=== PATIENT | male | born 1975 | race Caucasian/White ===

== ENCOUNTER → 2019-08-12 | Outpatient (CLI) | payer MEDICAID ==
--- NOTE | 2019-08-12 11:59 | Diagnostic Imaging Report ---
INDICATION: Right ankle pain. TIME OF EXAM: 11:48 a.m. FINDINGS: Two views of the right ankle were obtained. Alignment is normal. Ankle mortise is well-maintained. Talar dome is smooth. No fracture is seen. There is a corticated osseous density projected just cephalad to the anterior talus, chronic. No soft tissue swelling is seen. IMPRESSION: No acute bony abnormality is detected. Dictated by: Dictated on workstation # [id number]
== END ==
LOC: RAD FS 11:39
PROVIDERS: ATTEND Family Medicine
DX: M25.571 Pain in right ankle and joints of right foot (principal)
CPT/HCPCS: 73600

== ENCOUNTER 2019-09-11 05:52 | Outpatient (CLI) | payer MEDICAID ==
[~2019-09-11] VITALS: Ht 177 cm; Wt 100.0 kg
== END 2019-09-11 15:32 | disposition home or self-care (01) ==
LOC: PREOP 05:52
PROVIDERS: ATTEND Surgery
DX: Z01.818 Encounter for other preprocedural examination (principal)

== ENCOUNTER 2019-09-26 16:25 | Emergency (ER) | payer MEDICAID ==
[~2019-09-26] VITALS: Ht 175.2 cm; Wt 104.5 kg
[~2019-09-26 16:25] MED LIST: OXYC1TAB16 PO
--- NOTE | 2019-09-26 16:45 | NUR ---
Pt very rude and demanding to see a dr right this minute in regards to his rectal bleeding. Pt states, "i guess i will just lay here and !" This RN notified the pt he is BARRY x4, vitals stable and that he is not in any danger. Dr notified and in to see pt.
--- NOTE | 2019-09-26 17:02 | ED GI ---
General Chief Complaint: Rect Problems Stated Complaint: BLEEDING AFTER SURGERY Nursing Triage Note: Pt reports having bloody stool with clots this afternoon. He reports hemorrhoidectomy on 09/18/19. Pt denies abd pain or N/V/D. Sepsis Screen: No Definite Risk Source of Information: Patient Exam Limitations: No Limitations History of Present Illness Date Seen by Provider: Sep 26, 2019 Time Seen by Provider: 16:55 Initial Comments Presents via EMS w c/o rectal bleeding. Had hemorrhoidectomy 6 days ago in [place] by Dr Crawley. Has been having some intermittent bleeding, but after a BM today passed several large clots and called 911. Denies CP or SOA, denies syncope or feeling light headed or dizzy. Allergies and Home Medications Allergies Coded Allergies: No Known Drug Allergies (Unverified , 09/11/19) Home Medications Oxycodone HCl/Acetaminophen 1 Each Tablet, 1-2 TAB PO Q4H PRN for PAIN-MODERATE Prescribed by: FRAN BROOKS on 09/18/19 0823 Patient Home Medication List Home Medication List Reviewed: Yes Review of Systems Review of Systems Constitutional: see HPI; No dizziness, No malaise, No weakness Respiratory: See HPI; Denies Shortness of Air Cardiovascular: Denies Chest Pain, Denies Lightheadedness, Denies Palpitations, Denies Syncope Gastrointestinal: See HPI; Denies Abdominal Pain, Denies Constipated, Denies Diarrhea, Denies Nausea, Denies Poor Appetite, Denies Poor Fluid Intake; Rectal Bleeding; Denies Vomiting Genitourinary: No Symptoms Reported Musculoskeletal: no symptoms reported Hematologic/Lymphatic: See HPI, Blood Clots; Denies Easy Bleeding, Denies Easy Bruising Past Plsgneo-Inbdll-Kwdotq Hx Past Med/Social Hx: Reviewed Nursing Past Med/Soc Hx Patient Social History Type Used: Cigarettes 2nd Hand Smoke Exposure: Yes Recent Foreign Travel: No Contact w/Someone Who Travel: No Recent Infectious Disease Expo: No Recent Hopitalizations: No Immunizations Up To Date PED Vaccines UTD: No Date of Influenza Vaccine: Apr 28, 2019 Seasonal Allergies Seasonal Allergies: No Past Medical History Surgeries: Yes (WISDOM TEETH, HIATAL HERNIA REPAIR) Respiratory: No Currently Using CPAP: No Currently Using BIPAP: No Cardiac: No Neurological: Yes Headaches /Migraines Sexually Transmitted Disease: No HIV/AIDS: No Genitourinary: No Gastrointestinal: Yes Hemorrhoids Musculoskeletal: Yes Scoliosis, Chronic Back Pain Endocrine: No HEENT: Yes (READING GLASSES) Loss of Vision: Denies Hearing Impairment: Denies Cancer: No Psychosocial: Yes Depression Integumentary: No Blood Disorders: No Adverse Reaction/Blood Tranf: No Physical Exam Vital Signs Vital Signs - First Documented 09/26/19 16:30 Temp 36.4 Pulse 80 Resp 14 B/P (MAP) 127/71 (89) Pulse Ox 97 O2 Delivery Room Air Capillary Refill : Less Than 3 Seconds Height/Weight/BMI Height: '" Weight: lbs. oz. kg; 34.00 BMI Method: General Appearance: WD/WN, no apparent distress Rectal: hemorrhoids, tenderness, other (no active bleeding. healing skin post surgical. small tear @ 9 o'clock, otherwise no profuse bleeding. ) Progress/Results/Core Measures Results/Orders Lab Results Laboratory Tests Test 09/26/19 17:00 Range/Units White Blood Count 8.7 4.3-11.0 10^3/uL Red Blood Count 5.02 4.35-5.85 10^6/uL Hemoglobin 14.8 13.3-17.7 G/DL Hematocrit 44 40-54 % Mean Corpuscular Volume 88 80-99 FL Mean Corpuscular Hemoglobin 29 25-34 PG Mean Corpuscular Hemoglobin Concent 33 32-36 G/DL Red Cell Distribution Width 12.5 10.0-14.5 % Platelet Count 233 130-400 10^3/uL Mean Platelet Volume 11.3 H 7.4-10.4 FL Neutrophils (%) (Auto) 69 42-75 % Lymphocytes (%) (Auto) 21 12-44 % Monocytes (%) (Auto) 7 0-12 % Eosinophils (%) (Auto) 2 0-10 % Basophils (%) (Auto) 1 0-10 % Neutrophils # (Auto) 6.0 1.8-7.8 X 10^3 Lymphocytes # (Auto) 1.9 1.0-4.0 X 10^3 Monocytes # (Auto) 0.6 0.0-1.0 X 10^3 Eosinophils # (Auto) 0.2 0.0-0.3 10^3/uL Basophils # (Auto) 0.1 0.0-0.1 10^3/uL My Orders Orders - SONDRA LUI DO Cbc With Automated Diff (09/26/19 16:37) Vital Signs/I&O 09/26/19 16:30 Temp 36.4 Pulse 80 Resp 14 B/P (MAP) 127/71 (89) Pulse Ox 97 O2 Delivery Room Air Blood Pressure Mean: 89 Progress Progress Note : Progress Note Pt very difficult an belligerent w myself and nurse. After completion of his ER evaluation/ work-up and discussion of plan to send him home he asked to be life- flighted to [place] for further care. I explained that he was being discharged and he was stable. There was no evidence of imminent danger....ie bleeding to . Patient very worried that we were not doing enough. Explained his blood work was great, his Vitals were normal and his exam was without significant amount of bleeding. Tried to call his surgeon (Dr Smith) to notify him regarding this patient but he did not return my call @ [phone]. No need for admission or surgical consultation of this patient. Given instruction on warning signs of worsening bleeding or hemodynamic instability in his DC instructions. Departure Impression Primary Impression: Status post hemorrhoidectomy Additional Impression: Rectal/anal hemorrhage Disposition: HOME, SELF-CARE Condition: Improved Departure-Patient Inst. Referrals: EDIN GREWAL MD (PCP/Family) Primary Care Physician Patient Instructions: Hemorrhoidectomy (DC) SONDRA LUI DO Sep 26, 2019 17:02
[2019-09-26 17:10] LABS: BASOPHILS # (AUTO) 0.1 10^3/uL (0.0-0.1); BASOPHILS % (AUTO) 1 % (0-10); EOSINOPHILS # (AUTO) 0.2 10^3/uL (0.0-0.3); EOSINOPHILS % (AUTO) 2 % (0-10); HEMATOCRIT 44 % (40-54); HEMOGLOBIN 14.8 G/DL (13.3-17.7); LYMPHOCYTES # (AUTO) 1.9 X 10^3 (1.0-4.0); LYMPHOCYTES % (AUTO) 21 % (12-44); MEAN CORPUSCULAR HEMOGLOBIN 29 PG (25-34); MEAN CORPUSCULAR HGB CONC 33 G/DL (32-36); MEAN CORPUSCULAR VOLUME 88 FL (80-99); MEAN PLATELET VOLUME 11.3 FL (7.4-10.4); MONOCYTES # (AUTO) 0.6 X 10^3 (0.0-1.0); MONOCYTES % (AUTO) 7 % (0-12); NEUTROPHILS % (AUTO) 69 % (42-75); PLATELET COUNT 233 10^3/uL (130-400); RED CELL DISTRIBUTION WIDTH 12.5 % (10.0-14.5); WHITE BLOOD COUNT 8.7 10^3/uL (4.3-11.0)
--- NOTE | 2019-09-26 17:30 | NUR ---
This RN notified the pt is laying in bed with his shorts now and bleeding down his buttocks. This RN and physician made pt contact. Pt states, "see I am bleeding and clots are coming out." Pt removed packing pad placed by this RN and tech. notified the pt that removing a packing from a bleeding body part is not appropriate. placed 4x4 dressings and pad back into pts buttocks and shorts replaced. This RN cleaned pt and bed and replaced sheet.
--- NOTE | 2019-09-26 17:35 | NUR ---
This RN in to check on pt and pt continues to be rude and attempting to degrate this facility and the health care facilities in [place]. "You people take care of people like in the dark ages! Because of you all and your opioid pandemic here in [place] it took me 48 hrs to get my meds so I had to strain and made me start bleeding!" This RN attempted to calm and redirect the pt and made him aware that the opioid issue has nothing to do with this facility, his getting medication or his current rectal bleeding issue. It was explained to him his losing of blood is rather minimal and his body makes more RBC to combat this issue.
--- NOTE | 2019-09-26 18:00 | NUR ---
Pt contact made to discharge the pt. He requests to talk to the . Dr. De Oliveira in to see the pt. Pt states, "Have you talked to Dr. Smith?" Dr states he has paged him yet has not retured his call. Pt merely shook his head. Pt made aware the packing is to remain in place and follow up with Dr. Smith or return to ED as needed. Pt offered paper scrubs. Pt requests a trash bag at this time. "Do you have a trash bag I can put on and my legs through?" This RN informed the pt I would not give him a trash bag to wear out. "Its fine. I will put my legs through it," he replied. Multiple absorbent bed pads given to the pt as to not soil his 's car. Pt provided a w/c out to car. Pt states, "Fine I will just go to [place]."
[2019-09-26 18:05] VITALS: BP 131/72
== END 2019-09-26 18:05 | disposition home or self-care (01) ==
LOC: EDUNIT# 16:25 → ER FS 16:27
DX: K91.840 Postprocedural hemorrhage of a digestive system organ or structure following a digestive system procedure (principal); Z77.22 Contact with and (suspected) exposure to environmental tobacco smoke (acute) (chronic)
CPT/HCPCS: 36415; 85025

== ENCOUNTER 2019-09-26 19:20 | Observation (INO) | payer MEDICAID ==
[~2019-09-26] VITALS: Ht 177.8 cm; Wt 100.1 kg
[2019-09-26] MEDS ORDERED: LORazepam INJ 2 MG/ML (ATIVAN) VIAL ONE (19:21)
[2019-09-26] MEDS ORDERED: LORazepam INJ 2 MG/ML (ATIVAN) VIAL IVP PRN (19:45)
[2019-09-26] MEDS ORDERED: LACTATED RINGERS 1,000 ML IV SCH (19:45)
--- NOTE | 2019-09-26 19:46 | ED GI ---
General Stated Complaint: POST SURGERY PROBLEMS Source of Information: Patient Exam Limitations: No Limitations History of Present Illness Date Seen by Provider: Sep 26, 2019 Time Seen by Provider: 19:43 Initial Comments To ER by private vehicle with reports of rectal bleeding. He had a hemorrhoidectomy done [address] Smith, last he states. Starting today about 3 PM he developed some bleeding per rectum. Upon arrival he does have large clots falling out of his pants on the floor, tachycardic at 130 and hypotensive at 80 systolic. He denies fevers, he denies abdominal pain, does report cramping intermittently to the low abdomen. Timing/Duration: 1-2 Days Severity/Quality: Moderate Radiation: No Radiation Activities at Onset: None Associated Symptoms: Denies Symptoms Allergies and Home Medications Allergies Coded Allergies: No Known Drug Allergies (Unverified , 09/11/19) Home Medications Oxycodone HCl/Acetaminophen 1 Each Tablet, 1-2 TAB PO Q4H PRN for PAIN-MODERATE Prescribed by: FRAN BROOKS on 09/18/19 0823 Patient Home Medication List Home Medication List Reviewed: Yes Review of Systems Review of Systems Constitutional: see HPI EENTM: No Symptoms Reported Respiratory: No Symptoms Reported Cardiovascular: No Symptoms Reported Gastrointestinal: See HPI, Rectal Bleeding Genitourinary: No Symptoms Reported Musculoskeletal: no symptoms reported Skin: no symptoms reported Psychiatric/Neurological: No Symptoms Reported Endocrine: No Symptoms Reported Hematologic/Lymphatic: No Symptoms Reported (S) Past Zkrbjzj-Wdfcxc-Cnfprg Hx Patient Social History Type Used: Cigarettes 2nd Hand Smoke Exposure: Yes Recent Foreign Travel: No Contact w/Someone Who Travel: No Recent Hopitalizations: No Immunizations Up To Date PED Vaccines UTD: No Date of Influenza Vaccine: Apr 28, 2019 Seasonal Allergies Seasonal Allergies: No Past Medical History Surgeries: Yes (WISDOM TEETH, HIATAL HERNIA REPAIR) Respiratory: No Currently Using CPAP: No Currently Using BIPAP: No Cardiac: No Neurological: Yes Headaches /Migraines Sexually Transmitted Disease: No HIV/AIDS: No Genitourinary: No Gastrointestinal: Yes Hemorrhoids Musculoskeletal: Yes Scoliosis, Chronic Back Pain Endocrine: No HEENT: Yes (READING GLASSES) Loss of Vision: Denies Hearing Impairment: Denies Cancer: No Psychosocial: Yes Depression Integumentary: No Blood Disorders: No Adverse Reaction/Blood Tranf: No Physical Exam Vital Signs Capillary Refill : Height/Weight/BMI Height: '" Weight: lbs. oz. kg; 34.00 BMI Method: General Appearance: WD/WN, mild distress (very anxious, hyperventilating, moaning, request the lights to be turned off because this makes him anxious.) HEENT: PERRL/EOMI, normal ENT inspection Neck: non-tender, full range of motion Respiratory: chest non-tender, lungs clear, normal breath sounds Cardiovascular: no murmur, tachycardia Gastrointestinal: normal bowel sounds, non tender, soft Extremities: normal range of motion, non-tender Neurologic/Psychiatric: alert, normal mood/affect, oriented x 3 Skin: normal color, warm/dry (Suzette) Progress/Results/Core Measures Results/Orders Lab Results Laboratory Tests Test 09/26/19 19:28 Range/Units White Blood Count 13.3 H 4.3-11.0 10^3/uL Red Blood Count 4.88 4.35-5.85 10^6/uL Hemoglobin 14.4 13.3-17.7 G/DL Hematocrit 43 40-54 % Mean Corpuscular Volume 88 80-99 FL Mean Corpuscular Hemoglobin 30 25-34 PG Mean Corpuscular Hemoglobin Concent 34 32-36 G/DL Red Cell Distribution Width 12.8 10.0-14.5 % Platelet Count 308 130-400 10^3/uL Mean Platelet Volume 11.3 H 7.4-10.4 FL Neutrophils (%) (Auto) 74 42-75 % Lymphocytes (%) (Auto) 18 12-44 % Monocytes (%) (Auto) 6 0-12 % Eosinophils (%) (Auto) 1 0-10 % Basophils (%) (Auto) 1 0-10 % Neutrophils # (Auto) 9.8 H 1.8-7.8 X 10^3 Lymphocytes # (Auto) 2.4 1.0-4.0 X 10^3 Monocytes # (Auto) 0.8 0.0-1.0 X 10^3 Eosinophils # (Auto) 0.2 0.0-0.3 10^3/uL Basophils # (Auto) 0.1 0.0-0.1 10^3/uL Sodium Level 140 135-145 MMOL/L Potassium Level 3.5 L 3.6-5.0 MMOL/L Chloride Level 104 98-107 MMOL/L Carbon Dioxide Level 23 21-32 MMOL/L Anion Gap 13 5-14 MMOL/L Blood Urea Nitrogen 13 7-18 MG/DL Creatinine 1.14 0.60-1.30 MG/DL Estimat Glomerular Filtration Rate > 60 BUN/Creatinine Ratio 11 Glucose Level 123 H 70-105 MG/DL Calcium Level 9.4 8.5-10.1 MG/DL Corrected Calcium 9.2 8.5-10.1 MG/DL Total Bilirubin 0.6 0.1-1.0 MG/DL Aspartate Amino Transf (AST/SGOT) 22 5-34 U/L Alanine Aminotransferase (ALT/SGPT) 32 0-55 U/L Alkaline Phosphatase 69 40-136 U/L Total Protein 7.0 6.4-8.2 GM/DL Albumin 4.3 3.2-4.5 GM/DL My Orders Orders - JESICA ARGUETA APRN Lactated Ringers (Lr 1000 Ml Iv Solution (09/26/19 19:45) Lorazepam Injection (Ativan Injection) (09/26/19 19:45) Cbc With Automated Diff (09/26/19 19:37) Comprehensive Metabolic Panel (09/26/19 19:37) Protime With Inr (09/26/19 19:37) Partial Thromboplastin Time (09/26/19 19:37) Red Cells Leukocytes Reduced (09/26/19 19:37) Iv Heplock-Insert (Order) (09/26/19 19:37) Type And Screen (09/26/19 19:37) Departure Communication (Admissions) Time/Spoke to Admitting Phy: 20:11 2009- hes had very large grape jelly consistency stools here, vitals are improved heart rate still a bit tachycardic at 105, blood pressure up to 119/81. This follows administration of 1 L of LR. Hemoglobin stable. He will require monitoring, because the hypotension and the volume of hematochezia I will put him in the unit. He has Crossmatched for 2 units of packed red cells. I spoke with Dr. Noonan who is on-call for Dr. SMITH, agrees to admit observation with a recheck of labs in the morning. Impression Primary Impression: Rectal/anal hemorrhage Disposition: ADMITTED INPATIENT Condition: Stable Admissions Decision to Admit Reason: Admit from ER (General) Decision to Admit/Date: Sep 26, 2019 Time/Decision to Admit Time: 20:10 Departure-Patient Inst. Referrals: EDIN GREWAL MD (PCP/Family) Primary Care Physician JESICA ARGUETA APRN Sep 26, 2019 19:46
[2019-09-26 19:47] LABS: BASOPHILS # (AUTO) 0.1 10^3/uL (0.0-0.1); BASOPHILS % (AUTO) 1 % (0-10); EOSINOPHILS # (AUTO) 0.2 10^3/uL (0.0-0.3); EOSINOPHILS % (AUTO) 1 % (0-10); HEMATOCRIT 43 % (40-54); HEMOGLOBIN 14.4 G/DL (13.3-17.7); LYMPHOCYTES # (AUTO) 2.4 X 10^3 (1.0-4.0); LYMPHOCYTES % (AUTO) 18 % (12-44); MEAN CORPUSCULAR HEMOGLOBIN 30 PG (25-34); MEAN CORPUSCULAR HGB CONC 34 G/DL (32-36); MEAN CORPUSCULAR VOLUME 88 FL (80-99); MEAN PLATELET VOLUME 11.3 FL (7.4-10.4); MONOCYTES # (AUTO) 0.8 X 10^3 (0.0-1.0); MONOCYTES % (AUTO) 6 % (0-12); NEUTROPHILS # (AUTO) 9.8 X 10^3 (1.8-7.8); NEUTROPHILS % (AUTO) 74 % (42-75); PLATELET COUNT 308 10^3/uL (130-400); RED CELL DISTRIBUTION WIDTH 12.8 % (10.0-14.5); WHITE BLOOD COUNT 13.3 10^3/uL (4.3-11.0)
[2019-09-26 19:57] LABS: ALANINE AMINOTRANSFERASE 32 U/L (0-55); ALBUMIN 4.3 GM/DL (3.2-4.5); ALKALINE PHOSPHATASE 69 U/L (40-136); BILIRUBIN,TOTAL 0.6 MG/DL (0.1-1.0); BUN/CREATININE RATIO 11; CALCIUM 9.4 MG/DL (8.5-10.1); CARBON DIOXIDE 23 MMOL/L (21-32); CHLORIDE 104 MMOL/L (98-107); CREATININE SERUM 1.14 MG/DL (0.60-1.30); GFR ESTIMATED > 60; GLUCOSE 123 MG/DL (70-105); POTASSIUM 3.5 MMOL/L (3.6-5.0); SODIUM 140 MMOL/L (135-145)
[2019-09-26 20:07] LABS: PROTHROMBIN TIME PATIENT 13.6 SEC (12.2-14.7)
[2019-09-26 22:00] VITALS: BP 129/99
[2019-09-26] MEDS ORDERED: LORazepam INJ 2 MG/ML (ATIVAN) VIAL IV PRN (22:45)
[2019-09-26] MEDS ORDERED: ONDANSETRON 4 MG/2 ML (SDV) Z0FRAN IV PRN (22:45)
[2019-09-26 23:30] VITALS: BP 99/81
[2019-09-26 23:45] VITALS: BP 115/70
[2019-09-27] VITALS (15 sets, daily range): BP systolic 89–118; BP diastolic 49–75
[2019-09-27] MEDS: NS IV 1000 ML 1,000 ML IV SCH ×4 (01:04→18:06)
[2019-09-27] MEDS: fentaNYL INJECTION 100 MCG/2 ML AMP IV PRN ×2 (01:04→09:12)
[2019-09-27 04:04] LABS: BASOPHILS % (AUTO) 1 % (0-10); EOSINOPHILS # (AUTO) 0.2 10^3/uL (0.0-0.3); EOSINOPHILS % (AUTO) 2 % (0-10); HEMATOCRIT 33 % (40-54); HEMOGLOBIN 11.2 G/DL (13.3-17.7); LYMPHOCYTES # (AUTO) 2.1 X 10^3 (1.0-4.0); LYMPHOCYTES % (AUTO) 26 % (12-44); MEAN CORPUSCULAR HEMOGLOBIN 30 PG (25-34); MEAN CORPUSCULAR HGB CONC 34 G/DL (32-36); MEAN CORPUSCULAR VOLUME 88 FL (80-99); MEAN PLATELET VOLUME 11.2 FL (7.4-10.4); MONOCYTES # (AUTO) 0.6 X 10^3 (0.0-1.0); MONOCYTES % (AUTO) 7 % (0-12); NEUTROPHILS # (AUTO) 5.1 X 10^3 (1.8-7.8); NEUTROPHILS % (AUTO) 64 % (42-75); PLATELET COUNT 230 10^3/uL (130-400); RED CELL DISTRIBUTION WIDTH 12.6 % (10.0-14.5); WHITE BLOOD COUNT 7.9 10^3/uL (4.3-11.0)
[2019-09-27 04:23] LABS: BUN/CREATININE RATIO 19; CALCIUM 8.3 MG/DL (8.5-10.1); CARBON DIOXIDE 23 MMOL/L (21-32); CHLORIDE 106 MMOL/L (98-107); CREATININE SERUM 0.86 MG/DL (0.60-1.30); GFR ESTIMATED > 60; GLUCOSE 103 MG/DL (70-105); MAGNESIUM 1.9 MG/DL (1.6-2.4); PHOSPHORUS 3.3 MG/DL (2.3-4.7); POTASSIUM 3.8 MMOL/L (3.6-5.0); SODIUM 138 MMOL/L (135-145)
[2019-09-27] MEDS ORDERED: FLU QUADRIvalent (5+ YOA) 2019-2020 (AFLURIA) 0.5 ML IM ONE (07:00)
--- NOTE | 2019-09-27 08:17 | Diagnostic Imaging Report ---
INDICATION: Gastrointestinal bleed. FINDINGS: The heart size, mediastinal configuration, and pulmonary vascularity are within normal limits. There is no pleural effusion, pneumothorax, or pneumonia. The osseous structures are unremarkable. IMPRESSION: No acute cardiopulmonary abnormality. Dictated by: Dictated on workstation # [id number]
[2019-09-27] MEDS ORDERED: fentaNYL INJECTION 100 MCG/2 ML AMP IVP ONE (10:30)
[2019-09-27] MEDS ORDERED: HYDROcodone/APAP 10 MG/325 MG (LORTAB) TAB PO PRN (10:30)
--- NOTE | 2019-09-27 11:16 | History & Physical-Surgical ---
History of Present Illness History of Present Illness Reason for visit/HPI Surgery asked to admit pt because of rectal bleed and Hypotension. HPI per ER: To ER by private vehicle with reports of rectal bleeding. He had a hemorrhoidectomy done [address] Smith, last he states. Starting today about 3 PM he developed some bleeding per rectum. Upon arrival he does have large clots falling out of his pants on the floor, tachycardic at 130 and hypotensive at 80 systolic. He denies fevers, he denies abdominal pain, does report cramping intermittently to the low abdomen. Timing/Duration: 1-2 Days Severity/Quality: Moderate Radiation: No Radiation Activities at Onset: None Associated Symptoms: Denies Symptoms When pt was seen today he states he is feeling "so much better" and that last night he was in a bad place and being mean. He has not had any more BM's since last night; when he had 3 more bloody ones. He denies feeling weak today but is having some very mild abdominal pain. Nurse states he has not been hypotensive since he first came in. Pt reports he does not always have a daily BM and is not sure he will have one today. Pain in the rectal area right now is 2-3, but was 6-8 last night and is worse with BM's. Date of Admission Sep 26, 2019 at 20:08 Time Seen by a Provider: 10:10 I consulted on this patient on 09/27/19 11:11 Attending Physician Brayan Reaves DO Admitting Physician Chery Gibbons MD Consult Allergies and Home Medications Allergies Coded Allergies: No Known Drug Allergies (Unverified , 09/11/19) Home Medications Oxycodone HCl/Acetaminophen 1 Each Tablet, 1-2 TAB PO Q4H PRN for PAIN-MODERATE Prescribed by: FRAN BROOKS on 09/18/19 0823 Patient Home Medication List Home Medication List Reviewed: Yes Past Yaigcsz-Vyhuxu-Lrrdub Hx Patient Social History Alcohol Use: Denies Use Recreational Drug Use: No Smoking Status: Current Everyday Smoker Type Used: Cigarettes 2nd Hand Smoke Exposure: Yes Recent Foreign Travel: No Contact w/Someone Who Travel: No Recent Infectious Disease Expo: No Recent Hopitalizations: No Immunizations Up To Date PED Vaccines UTD: No Date of Influenza Vaccine: Apr 28, 2019 Seasonal Allergies Seasonal Allergies: No Surgeries History of Surgeries: Yes (WISDOM TEETH, HIATAL HERNIA REPAIR, HEMORROIDECTOMY) Respiratory History of Respiratory Disorde: No Cardiovascular History of Cardiac Disorders: No Neurological History of Neurological Disord: Yes Neurological Disorders: Headaches /Migraines Reproductive System Sexually Transmitted Disease: No HIV/AIDS: No Genitourinary History of Genitourinary Disor: No Gastrointestinal History of Gastrointestinal Di: Yes Gastrointestinal Disorders: Hemorrhoids Musculoskeletal History of Musculoskeletal Dis: Yes Musculoskeletal Disorders: Scoliosis, Chronic Back Pain Endocrine History of Endocrine Disorders: No HEENT History of HEENT Disorders: Yes (READING GLASSES) Loss of Vision: Denies Hearing Impairment: Denies Cancer History of Cancer: No Psychosocial History of Psychiatric Problem: Yes Behavioral Health Disorders: Depression Integumentary History of Skin or Integumenta: No Blood Transfusions History of Blood Disorders: No Adverse Reaction to a Blood Tr: No Family Medical History Significant Family History: Psychiatric Problems (Depression), Other Conditions/Hx (Pt denies any DM, HTN or heart problems in his family. There is a hx of scoliosis.) Review of Systems Constitutional: No chills; malaise, weakness EENTM: No blurred vision, No double vision, No mouth pain, No mouth swelling, No epistaxis Respiratory: No cough, No dyspnea on exertion, No hemoptysis, No short of breath Cardiovascular: No chest pain, No palpitations Gastrointestinal: abdominal pain; No nausea, No vomiting; other (hematochezia) Genitourinary: No dysuria, No frequency, No hematuria Musculoskeletal: No joint pain, No joint swelling, No muscle stiffness Skin: No change in color, No change in hair/nails, No dryness Psychiatric/Neurological: Denies Anxiety; Depressed; Denies Seizure, Denies Tremors pt denies history of abnormal bleeding or bruising Physical Exam Vital Signs Vital Signs - First Documented 09/26/19 09/26/19 19:20 21:40 Temp 36.2 Pulse 129 Resp 30 B/P (MAP) 105/82 (90) Pulse Ox 100 O2 Delivery Room Air Capillary Refill : Less Than 3 Seconds Height, Weight, BMI Height: '" Weight: lbs. oz. kg; 31.00 BMI Method: General Appearance: No Apparent Distress, WD/WN Eyes: Bilateral Eye PERRL, Bilateral Eye EOMI HEENT: Pharynx Normal, Moist Mucous Membranes, Other (poor dentition) Neck: Full Range of Motion, Normal Inspection, Supple Respiratory: Chest Non Tender, Lungs Clear, Normal Breath Sounds, No Accessory Muscle Use, No Respiratory Distress Cardiovascular: Regular Rate, Rhythm, No Murmur Gastrointestinal: Normal Bowel Sounds, No Organomegaly, Soft, Tenderness (mild in lower quadrants), Other Rectal: Normal Rectal Tone, Other (rectal exam performed, healing surgical incisions, no active bleeding, extremely tender when doing RAE but did not see any bright red blood on glove and only scant maroone coloring seen) Back: No CVA Tenderness, No Vertebral Tenderness Extremity: Non Tender, No Calf Tenderness, No Pedal Edema Neurologic/Psychiatric: Alert, Oriented x3, No Motor/Sensory Deficits, Normal Mood/Affect, print operator II-XII Norm as Tested Skin: Normal Color, Warm/Dry Lymphatic: No Adenopathy (neck, axilla or groin) Data Review Labs Laboratory Tests 09/26/19 19:28: White Blood Count 13.3H, Red Blood Count 4.88, Hemoglobin 14.4, Hematocrit 43, Mean Corpuscular Volume 88, Mean Corpuscular Hemoglobin 30, Mean Corpuscular Hemoglobin Concent 34, Red Cell Distribution Width 12.8, Platelet Count 308, Mean Platelet Volume 11.3H, Neutrophils (%) (Auto) 74, Lymphocytes (%) (Auto) 18, Monocytes (%) (Auto) 6, Eosinophils (%) (Auto) 1, Basophils (%) (Auto) 1, Neutrophils # (Auto) 9.8H, Lymphocytes # (Auto) 2.4, Monocytes # (Auto) 0.8, Eosinophils # (Auto) 0.2, Basophils # (Auto) 0.1, Prothrombin Time 13.6, INR Comment 1.0, Activated Partial Thromboplast Time 27, Sodium Level 140, Potassium Level 3.5L, Chloride Level 104, Carbon Dioxide Level 23, Anion Gap 13, Blood Urea Nitrogen 13, Creatinine 1.14, Estimat Glomerular Filtration Rate > 60, BUN/Creatinine Ratio 11, Glucose Level 123H, Calcium Level 9.4, Corrected Calcium 9.2, Total Bilirubin 0.6, Aspartate Amino Transf (AST/SGOT) 22, Alanine Aminotransferase (ALT/SGPT) 32, Alkaline Phosphatase 69, Total Protein 7.0, Albu min 4.3 09/27/19 03:36: White Blood Count 7.9, Red Blood Count 3.79L, Hemoglobin 11.2#L, Hematocrit 33L, Mean Corpuscular Volume 88, Mean Corpuscular Hemoglobin 30, Mean Corpuscular Hemoglobin Concent 34, Red Cell Distribution Width 12.6, Platelet Count 230, Mean Platelet Volume 11.2H, Neutrophils (%) (Auto) 64, Lymphocytes (%) (Auto) 26, Monocytes (%) (Auto) 7, Eosinophils (%) (Auto) 2, Basophils (%) (Auto) 1, Neutrophils # (Auto) 5.1, Lymphocytes # (Auto) 2.1, Monocytes # (Auto) 0.6, Eosinophils # (Auto) 0.2, Basophils # (Auto) 0.0, Sodium Level 138, Potassium Level 3.8, Chloride Level 106, Carbon Dioxide Level 23, Anion Gap 9, Blood Urea Nitrogen 16, Creatinine 0.86, Estimat Glomerular Filtration Rate > 60, BUN/Creatinine Ratio 19, Glucose Level 103, Calcium Level 8.3L, Phosphorus Level 3.3, Magnesium Level 1.9 Assessment/Plan Assessment/Plan Admission Diagonsis Rectal Bleed Anemia Admission Status: Observation Assessment/Plan Rectal Bleed Anemia Hypotension - resolved Anemia is secondary to the rectal bleeding, probably caused by recent hemorrhoid surgery. It does appear that the bleeding has stopped, but not before his hemoglobin dropped from 14 to 11. He was started on IVF, pain meds and given a diet. Will recheck an H/H at 1530; which is 12 hours after the last one. As longas there is not a significant drop and pt experiences no more bright red bleeding; will probably let him go today. Pt needs to get home so his can get to work and he can watch the kids. He was grateful we were trying to get him home and understood our plan. All questions answered to his satisfaction. Clinical Quality Measures DVT/VTE Risk/Contraindication: Risk Factor Score Per Nursin RFS Level Per Nursing on Admit: 1=Low/No VTE PPX BRAYAN REAVES DO Sep 27, 2019 11:16
[2019-09-27 16:12] LABS: HEMOGLOBIN 9.9 G/DL (13.3-17.7)
--- NOTE | 2019-09-27 16:19 | NUR ---
THIS NURSE NOTIFIED DR REAVES OF REPEAT H&H RESULTS. DR REAVES SAID PT MAY GO HOME. PT IS TO FOLLOW UP EARLY NEXT WEEKS WITH DR CORNELIUS. PT IS TO RETURN TO ER IF PT HAS ANY MORE BLEEDING OR FEELS WEAK.
--- NOTE | 2019-09-27 18:34 | Discharge Inst-Surgical ---
Discharge Inst-Surgical Depart Medication/Instructions New, Converted or Re-Newed RX: Other Patient Instructions Follow up Appt: Make appointment for this week with Dr. Smith Instructions: No strenuous activity. May shower in 24 hours, no tub bath or soaking. Use incentive spirometer at home as directed. No Smoking Skin/Wound Care: Warm sitz baths. Symptoms to Report: Appetite Changes, Extremity Discoloration, Numbness/Tingling, Swelling Increased, Bleeding Excessive, Eyesight Changes, Pain Increased, Urine Color Change, Constipation(Persistent), Fever over 101 degree F, Pain/Pressure in chest, Urinating Difficulty, Cough Up/Vomit Blood, Heart Beat Irreg/Pounding, Pain/Pressure in jaw, Cramps in feet or legs, Lightheadedness, Pain/Pressure in shoulder, Diarrhea(Persistent), Memory Changes Suddenly, Questions/Concerns, Weight gain consecutive days, Dizziness/Fainting, Nausea/Vomiting, Shortness of Breath, Weight gain over 2 pounds If questions or concerns contact your physician Or seek help at emergency department. Activity Activity as Tolerated: Yes Activity Instructions: Avoid Stress to Incision Driving Instructions: You May Drive Diet Discharge Diet: No Restrictions Skin/Wound Care Bathing Instructions: Michelle Acosta ERIC B DO Sep 27, 2019 18:34
--- NOTE | 2019-09-27 18:55 | NUR ---
THIS NURSE EDUCATED PT ON DISCHARGE INSTRUCTIONS. NURSE EDUCATED PT TO GO TO THE ER IF HE IS HAVING ANY MORE BLEEDING OR FEELS WEAK. PT STATED HE UNDERSTOOD AND PT HAS A DR APPOINTMENT WITH DR CORNELIUS SUNDAY.
== END 2019-09-27 18:58 | disposition home or self-care (01) ==
LOC: EDUNIT# 19:26 → ER 19:28 → ICU 20:08
PROVIDERS: ADMIT Surgery; ATTEND Surgery
DX: K62.5 Hemorrhage of anus and rectum (principal); G43.909 Migraine, unspecified, not intractable, without status migrainosus; G89.29 Other chronic pain; M54.9 Dorsalgia, unspecified; M41.9 Scoliosis, unspecified; I95.9 Hypotension, unspecified; D64.9 Anemia, unspecified; F32.9 Major depressive disorder, single episode, unspecified; F17.210 Nicotine dependence, cigarettes, uncomplicated; Z98.890 Other specified postprocedural states; Z79.891 Long term (current) use of opiate analgesic
CPT/HCPCS: 36415; 71045; 80048; 80053; 83735; 84100; 85014; 85018; 85025; 85610; 85730; 86850; 86900; 86901; 86920; 87081; G0378

== ENCOUNTER 2019-09-30 21:32 | Emergency (ER) | payer MEDICAID ==
[~2019-09-30] VITALS: Ht 180 cm; Wt 95.0 kg
--- NOTE | 2019-09-30 21:48 | ED GI ---
General Stated Complaint: BLOOD IN STOOL Source of Information: Patient Exam Limitations: No Limitations History of Present Illness Date Seen by Provider: Sep 30, 2019 Time Seen by Provider: 21:45 Initial Comments Patient was admitted recently for lower GI tract hemorrhage following hemorrhoidectomy. This was just a few days ago. He comes in today with reports of dark liquid stools, pressure in the rectum and suprapubic area. Also complains of some pain posterior to the right testicle, states "feels like I got blue balls and need to jerk off". Denies any trouble urinating, states "my right nut is 3 times bigger than my left one since I busted a vein from jerking off too much when I was 25"he reports bowel movements are not grossly bloody or obviously bloody but rather a black liquid dripping into the toilet. Timing/Duration: 2-3 Days Severity/Quality: Moderate Location: Suprapubic Radiation: No Radiation Activities at Onset: None Associated Symptoms: Denies Symptoms Allergies and Home Medications Allergies Coded Allergies: No Known Drug Allergies (Unverified , 09/11/19) Home Medications Oxycodone HCl/Acetaminophen 1 Each Tablet, 1-2 TAB PO Q4H PRN for PAIN-MODERATE Prescribed by: FRAN BROOKS on 09/18/19 0823 Patient Home Medication List Home Medication List Reviewed: Yes Review of Systems Review of Systems Constitutional: see HPI EENTM: No Symptoms Reported Respiratory: No Symptoms Reported Gastrointestinal: See HPI, Abdominal Pain Genitourinary: No Symptoms Reported Musculoskeletal: no symptoms reported Skin: no symptoms reported Psychiatric/Neurological: No Symptoms Reported Endocrine: No Symptoms Reported Past [id number] Hx Patient Social History Type Used: Cigarettes 2nd Hand Smoke Exposure: Yes Recent Foreign Travel: No Contact w/Someone Who Travel: No Recent Hopitalizations: No Immunizations Up To Date PED Vaccines UTD: No Date of Influenza Vaccine: Apr 28, 2019 Seasonal Allergies Seasonal Allergies: No Past Medical History Surgeries: Yes (WISDOM TEETH, HIATAL HERNIA REPAIR, HEMORROIDECTOMY) Respiratory: No Currently Using CPAP: No Currently Using BIPAP: No Cardiac: No Neurological: Yes Headaches /Migraines Sexually Transmitted Disease: No HIV/AIDS: No Genitourinary: No Gastrointestinal: Yes Hemorrhoids Musculoskeletal: Yes Scoliosis, Chronic Back Pain Endocrine: No HEENT: Yes (READING GLASSES) Loss of Vision: Denies Hearing Impairment: Denies Cancer: No Psychosocial: Yes Depression Integumentary: No Blood Disorders: No Adverse Reaction/Blood Tranf: No Family Medical History Psychiatric Problems, Other Conditions/Hx Physical Exam Vital Signs Vital Signs - First Documented 09/30/19 21:49 Temp 37.3 Pulse 79 Resp 20 B/P (MAP) 123/73 (90) Pulse Ox 99 O2 Delivery Room Air Capillary Refill : Height/Weight/BMI Height: '" Weight: lbs. oz. kg; 31.00 BMI Method: General Appearance: WD/WN, no apparent distress Respiratory: no respiratory distress, no accessory muscle use Gastrointestinal: normal bowel sounds, soft Genital/Rectal: other (there is no testicular tenderness or abnormal appearance of the scrotum. The area that he is complaining that his "behind the testicle" is actually the right side of the perineum) Extremities: normal range of motion, non-tender Neurologic/Psychiatric: alert, normal mood/affect, oriented x 3 Skin: normal color, warm/dry Progress/Results/Core Measures Results/Orders Lab Results Laboratory Tests Test 09/30/19 21:50 09/30/19 22:20 Range/Units White Blood Count 7.3 4.3-11.0 10^3/uL Red Blood Count 3.37 L 4.35-5.85 10^6/uL Hemoglobin 9.9 L 13.3-17.7 G/DL Hematocrit 30 L 40-54 % Mean Corpuscular Volume 90 80-99 FL Mean Corpuscular Hemoglobin 29 25-34 PG Mean Corpuscular Hemoglobin Concent 33 32-36 G/DL Red Cell Distribution Width 12.6 10.0-14.5 % Platelet Count 310 130-400 10^3/uL Mean Platelet Volume 10.9 H 7.4-10.4 FL Neutrophils (%) (Auto) 63 42-75 % Lymphocytes (%) (Auto) 27 12-44 % Monocytes (%) (Auto) 7 0-12 % Eosinophils (%) (Auto) 3 0-10 % Basophils (%) (Auto) 1 0-10 % Neutrophils # (Auto) 4.6 1.8-7.8 X 10^3 Lymphocytes # (Auto) 2.0 1.0-4.0 X 10^3 Monocytes # (Auto) 0.5 0.0-1.0 X 10^3 Eosinophils # (Auto) 0.2 0.0-0.3 10^3/uL Basophils # (Auto) 0.0 0.0-0.1 10^3/uL My Orders Orders - JESICA ARGUETA [employer] Cbc With Automated Diff (09/30/19 21:36) Ct Abdomen/Pelvis W (09/30/19 21:45) Iohexol Injection (Omnipaque 350 Mg/Ml 1 (09/30/19 22:00) Received Contrast (Hold Metformin- Contr (09/30/19 22:00) Ns (Ivpb) (Sodium Chloride 0.9% Ivpb Bag (09/30/19 22:00) Ua Culture If Indicated (09/30/19 21:48) Na Phos/Na Biphos Enema (Fleet Enema Cornelio (09/30/19 22:15) Midazolam Injection (Versed Injection) (09/30/19 22:30) Medications Given in ED Current Medications Medications Dose Ordered Sig/Ngerita Route Start Time Stop Time Status Last Admin Dose Admin Iohexol 100 ml ONCE ONCE IV 09/30/19 22:00 09/30/19 22:01 DC 09/30/19 22:07 100 ML Midazolam HCl 2 mg ONCE ONCE IVP 09/30/19 22:30 09/30/19 22:31 DC 09/30/19 22:32 2 MG Sodium Chloride 100 ml ONCE ONCE IV 09/30/19 22:00 09/30/19 22:01 DC 09/30/19 22:07 80 ML Vital Signs/I&O 09/30/19 21:49 Temp 37.3 Pulse 79 Resp 20 B/P (MAP) 123/73 (90) Pulse Ox 99 O2 Delivery Room Air Departure Communication (Admissions) 8373-given a fleets enema, CT scan shows no acute findings per stat rad Impression Primary Impression: Fecal impaction Disposition: ADMITTED INPATIENT Condition: Stable Departure-Patient Inst. Decision time for Depature: 22:49 Referrals: EDIN GREWAL MD (PCP/Family) Primary Care Physician GLENROY CORNELIUS MD Patient Instructions: Fecal Impaction, Fecal Impaction (DC) Add. Discharge Instructions: 1. Call Dr. CORNELIUS tomorrow to make an appointment to be seen for follow-up. Return to ER for any concerns. JESICA ARGUETA APRN Sep 30, 2019 21:48
[2019-09-30 22:00] LABS: BASOPHILS % (AUTO) 1 % (0-10); EOSINOPHILS # (AUTO) 0.2 10^3/uL (0.0-0.3); EOSINOPHILS % (AUTO) 3 % (0-10); HEMATOCRIT 30 % (40-54); HEMOGLOBIN 9.9 G/DL (13.3-17.7); LYMPHOCYTES % (AUTO) 27 % (12-44); MEAN CORPUSCULAR HEMOGLOBIN 29 PG (25-34); MEAN CORPUSCULAR HGB CONC 33 G/DL (32-36); MEAN CORPUSCULAR VOLUME 90 FL (80-99); MEAN PLATELET VOLUME 10.9 FL (7.4-10.4); MONOCYTES # (AUTO) 0.5 X 10^3 (0.0-1.0); MONOCYTES % (AUTO) 7 % (0-12); NEUTROPHILS # (AUTO) 4.6 X 10^3 (1.8-7.8); NEUTROPHILS % (AUTO) 63 % (42-75); PLATELET COUNT 310 10^3/uL (130-400); RED CELL DISTRIBUTION WIDTH 12.6 % (10.0-14.5); WHITE BLOOD COUNT 7.3 10^3/uL (4.3-11.0)
[2019-09-30] MEDS ORDERED: NS 100 ML (IVPB) BAG IV ONE (22:00)
[2019-09-30] MEDS ORDERED: IOHEXOL 350 MG/ML 100 ML (OMNIPAQUE 350) VIAL IV ONE (22:00)
[2019-09-30] MEDS ORDERED: HOLD METFORMIN - RECEIVED CONTRAST 20 ML VIAL IV SCH (22:00)
[2019-09-30] MEDS ORDERED: FLEET ENEMA ADULT 1 EA BTL PR ONE (22:15)
[2019-09-30 22:26] LABS: BILIRUBIN,URINE NEGATIVE (NEGATIVE); CLARITY,URINE CLEAR; COLOR,URINE YELLOW; GLUCOSE, URINE (UA) NEGATIVE (NEGATIVE); KETONES,URINE NEGATIVE (NEGATIVE); LEUKOCYTE ESTERASE ,URINE NEGATIVE (NEGATIVE); NITRITE,URINE NEGATIVE (NEGATIVE); PH,URINE 6.5 (5-9); PROTEIN,URINE NEGATIVE (NEGATIVE)
[2019-09-30] MEDS ORDERED: MIDAZOLAM 2 MG/2 ML (VERSED) VIAL IVP ONE (22:30)
--- NOTE | 2019-09-30 22:45 | NUR ---
Pt to bedside commode at this time. No assistance needed.
[2019-09-30 22:55] LABS: BACTERIA,URINE TRACE /HPF
[2019-09-30] MEDS ORDERED: oxyCODONE/APAP 5/325MG (PERCOCET 5) TABLET PO ONE (23:15)
[2019-09-30 23:40] VITALS: BP 130/75
--- NOTE | 2019-10-01 07:28 | Diagnostic Imaging Report ---
PROCEDURE: CT abdomen and pelvis with contrast. TECHNIQUE: Multiple contiguous axial images were obtained through the abdomen and pelvis after administration of intravenous contrast. Auto Exposure Controls were utilized during the CT exam to meet ALARA standards for radiation dose reduction. INDICATION: Lower abdominal pain COMPARISON: None FINDINGS: There is significant thoracolumbar scoliosis. The lung bases are clear. Gallbladder, solid organs, vascular structures and small bowel are unremarkable. There is some mild constipation throughout the colon. Fecal ball in the rectum measures approximately 6 cm. Distal ureters and urinary bladder are normal. There is no prostate enlargement. There is no hernia. There is no lymphadenopathy. IMPRESSION: 1. Mild constipation throughout the colon without overt obstruction or inflammation. 2. Scoliosis. Dictated by: Dictated on workstation # [id number]
== END 2019-09-30 23:41 | disposition other institution (70) ==
LOC: EDUNIT# 21:32 → ER 21:34
DX: K56.41 Fecal impaction (principal); Z77.22 Contact with and (suspected) exposure to environmental tobacco smoke (acute) (chronic)
CPT/HCPCS: 36415; 74177; 81000; 85025